=== PATIENT | male | born 1970 | race Caucasian/White ===

== ENCOUNTER 2024-10-13 08:34 | Emergency (ER) | payer OTHER, SELFPAY ==
[2024-10-13 08:36] VITALS: BP 156/82; PULSE 66; RESP 16; TEMP 36.3; O2SAT 97; BMI 27.3
--- NOTE | 2024-10-13 08:38 | ED_ITS ---
HPI - General Adult General Chief complaint: Head Injury/Pain Stated complaint: hit in face by log-work comp Time Seen by Provider: 10/13/24 08:38 History of Present Illness HPI narrative: patient was chipping wood and caught forcing the log up into the left side of the face on the lower jaw. able to move jaw and teeth intact. has some cuts inside the mouth and abrasion on the left side of mouth with bleeding controlled. denies LOC. force of the log caused patient to fall on ass. happened half hour ago. 54-year-old man presenting to the emergency department after being struck in the face by a ?log?. Right side jaw hurts. Pain and feels some swelling also at the left face, side of impact. Oozing some blood in the left side of his lower jaw where said log kicked back or rotated up and struck him in the face. 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 No neck or back pain. No loss of consciousness. Thinks he saw stars upon impact. Related Data Home Medications ?Medication ?Instructions ?Recorded ?Confirmed atorvastatin .ROUTE 10/13/24 Allergies Allergy/AdvReac Type Severity Reaction Status Date / Time Penicillins Allergy Unknown Verified 10/13/24 08:44 Review of Systems Status of ROS: Reports: 6 or more systems reviewed and unremarkable except as noted in History and below [facility] Social History Non-prescribed substance use: denies use Exam Narrative: Exam Narrative: Pleasant. NAD. Dabbing blood at the left jaw area with paper towel. Neck is supple nontender. Back nontender. No fluid it external ear canals. Nerves 2 through 12 intact. Extraocular movements are full. No hyphema noted. Brisk and equal. 3 mm. Speaking fluidly, easily. Oropharynx looks to show intact dentition. There is along the left mandible buccal mucosa a flap laceration of the oral mucosa extending to more of cut ending just inside the lip edge. Total length an inch. There is some soreness but no discrete step-offs or irregularities to palpation of the mandible itself. Inferior and lateral to the corner of the left lip is an inch long irregular laceration. Bleeds lightly when manipulated. Anterior aspect is full dermal. Posterior to this is an abrasion that continues to ooze. Soreness to palpation at the right greater than left TMJ. Opens and closes the jaw although without notable difficulty. Const: Vital Signs, click to edit/add: Vital Signs - 24 hr 10/13/24 08:36 Temperature 97.4 F L Pulse Rate [Pulse Oximeter] 66 Respiratory Rate 16 Blood Pressure [Ri ght Upper Arm] 156/82 H Pulse Oximetry 97 Oxygen Delivery Me thod Room Air Documenting provider has reviewed patient's vital signs: yes Course Vital Signs Vital signs: Initial Vital Signs Temperature 97.4 F L 10/13/24 08:36 Temperature Source Temporal Artery Scan 10/13/24 08:36 Pulse Rate 66 10/13/24 08:36 Respiratory Rate 16 10/13/24 08:36 Blood Pressure 156/82 H 10/13/24 08:36 Blood Pressure Mean 106 H 10/13/24 08:36 Blood Pressure Position Sitting 10/13/24 08:36 Pulse Oximetry 97 10/13/24 08:36 Oxygen Delivery Method Room Air 10/13/24 08:36 Vital Signs Temperature 97.4 F L 10/13/24 08:36 Pulse Rate 66 10/13/24 08:36 Respiratory Rate 16 10/13/24 08:36 Blood Pressure 156/82 H 10/13/24 08:36 Pulse Oximetry 97 10/13/24 08:36 Oxygen Delivery Method Room Air 10/13/24 08:36 Temperature 97.4 F L 10/13/24 08:36 Pulse Rate 66 10/13/24 08:36 Respiratory Rate 16 10/13/24 08:36 Blood Pressure 156/82 H 10/13/24 08:36 Pulse Oximetry 97 10/13/24 08:36 Oxygen Delivery Method Room Air 10/13/24 08:36 Medications Administered Medications: Discontinued Medications Generic Name Dose Route Start Last Admin Trade Name Freq PRN Reason Stop Dose Admin Ibuprofen 600 mg 10/13/24 09:10 10/13/24 09:26 Ibuprofen 200 Mg Tablet PO 10/13/24 09:11 600 mg ONCE ONE Administration Lidocaine/Epinephrine 10 ml 10/13/24 08:57 10/13/24 09:26 Lidocaine 1%-Epi 1:100,000 INFILTRATI 10/13/24 08:58 10 ml ONCE ONE Administration Medical Decision Making MDM Narrative Medical decision making narrative: Has sustained head/jaw trauma. Primary injuries appear to be related to skin and oral mucosa. Does not appear to be concussed. I do not think needs any head or neck imaging. Nexus criteria considered. Do not think there is mandible fracture. Likely sprain of TMJ joint/jaw. Will need closure of these wounds partly to control bleeding but I think also better healing particularly of the oral lacerations. Returned to anesthetize with approximately 1 mL of lidocaine with epinephrine. Excellent anesthesia achieved. Cleansed with Shur-Clens equivalent solution. Tacked internal laceration with total of 3 6 0 Vicryl interrupted sutures. External laceration sutured with 5 0 Ethilon interrupted sutures. Control of bleeding achieved. Well-approximated. Antibiotic ointment placed and further Band-Aid placed over the abrasion. See patient discharge plan for further discussion Might want to go to a softer diet over the next few days. Limit foods that you need to chew more. sutures out in 5-6 days. The internals though are dissolvable and should be good enough effect if they stay in place for 3 days Keep moist with antibiotic ointment over the next 3 days or so. ok to get wet but try not to soak while sutures are in. for further scar reduction/wound healing if desired -- after the scab falls off, can apply daily vitamin e oil or something like maderma or silicone-containing ointments or bandaids daily. especially protect from sun exposure for the first 9 - 12 months. Watch for spreading redness after 2 days accompanied by heat, swelling, marked increase in pain, purulent drainage. Signs or symptoms of a concussion might be nausea or headache upon exertion which can also be an indication to back off that level of activity and reassess in a week.? Concussion can also be represented by smoldering nausea or smoldering headache, difficulty with concentration, mood lability, general somnolence, sense of persistent fog or dizziness/lightheadedness.? If these symptoms are becoming apparent and continuing beyond 7-10 days, be re-evaluated for further recommendations. Discharge Plan Discharge Clinical Impression: Sprain of jaw, Laceration of face, Laceration of oral cavity, Closed head injury Patient Disposition: Home, Self-Care Condition: Improved Additional Instructions: Might want to go to a softer diet over the next few days. Limit foods that you need to chew more. sutures out in 5-6 days. The internal as though are dissolvable and should be good enough effect if they stay in place for 3 days Keep moist with antibiotic ointment over the next 3 days or so. ok to get wet but try not to soak while sutures are in. for further scar reduction/wound healing if desired -- after the scab falls off, can apply daily vitamin e oil or something like maderma or silicone-containing ointments or bandaids daily. especially protect from sun exposure for the first 9 - 12 months. Watch for spreading redness after 2 days accompanied by heat, swelling, marked increase in pain, purulent drainage. Signs or symptoms of a concussion might be nausea or headache upon exertion which can also be an indication to back off that level of activity and reassess in a week.? Concussion can also be represented by smoldering nausea or smoldering headache, difficulty with concentration, mood lability, general somnolence, sense of persistent fog or dizziness/lightheadedness.? If these symptoms are becoming apparent and continuing beyond 7-10 days, be re-evaluated for further recommendations. Prescriptions: No Action atorvastatin .ROUTE Follow Up/Referrals: Provider,Not a Local [Primary Care Provider] - Stand Alone Forms: [facility] Info Instructions
[2024-10-13] MEDS: IBUPROFEN 200 MG TABLET 600 MG PO (09:26)
[2024-10-13] MEDS: LIDOCAINE 1%-EPI 1:100,000 10 ML INFILTRATI (09:26)
== END 2024-10-13 10:03 | disposition home or self-care (01) ==
PROVIDERS: Emergency Provider Family Medicine
DX: S03.42XA Sprain of jaw, left side, initial encounter (principal); S01.512A Laceration without foreign body of oral cavity, initial encounter; S01.511A Laceration without foreign body of lip, initial encounter; W22.8XXA Striking against or struck by other objects, initial encounter; Y93.89 Activity, other specified; Y92.9 Unspecified place or not applicable; Y99.0 Civilian activity done for income or pay
CPT/HCPCS: 12011; 99283; 99284; A9270